=== PATIENT | male | born 1945 | race Caucasian/White ===

== ENCOUNTER 2020-03-28 16:24 | Emergency (ER) | payer MEDICARE ==
[~2020-03-28] VITALS: Ht 175.3 cm; Wt 79.4 kg
[2020-03-28] MEDS ORDERED: BLOOD PRESSURE MED (16:43)
[2020-03-28] MEDS ORDERED: PROSCAR 5MG TABL5 M1 PO (16:44)
[2020-03-28 16:52] LABS: ABSOLUTE BASOPHILS 0.1 thou/uL (0.0-0.2); ABSOLUTE EOSINOPHILS 0.5 thou/uL (0.0-0.7); ABSOLUTE LYMPHOCYTES 1.3 thou/uL (0.8-5.3); ABSOLUTE MONOCYTES 0.9 thou/uL (0.0-1.2); ABSOLUTE NEUTROPHILS 3.7 thou/uL (1.6-8.1); BASOPHILS 1.4 %; EOSINOPHILS 7.5 %; HEMATOCRIT 43.7 % (42.0-52.0); HEMOGLOBIN 14.7 gm/dL (14.0-18.0); LYMPHOCYTES 20.5 %; MCH 31.3 pg (26.0-34.0); MCHC 33.7 g/dL (28.0-37.0); MCV 93.1 fL (80.0-100.0); MONOCYTES 13.2 %; MPV 8.4 fl. (7.2-11.1); NUCLEATED RBCS 0 /100WBC; PLATELET COUNT* 179 thou/uL (150-400); POLYS 57.4 %; RBC 4.69 mil/uL (4.50-6.00); RDW-CV 13.5 % (10.5-14.5); WBC 6.5 thou/uL (4.0-11.0)
[2020-03-28 16:56] LABS: CALCIUM 9.9 mg/dL (8.5-10.1); CREATININE 1.1 mg/dL (0.6-1.3); POTASSIUM 3.8 mmol/L (3.5-5.1)
[2020-03-28 17:06] LABS: ALBUMIN 3.7 g/dL (3.4-5.0); TOTAL BILIRUBIN 0.5 mg/dL (<0.1-1.0); TOTAL PROTEIN 7.9 g/dL (6.4-8.2)
[2020-03-28] MEDS ORDERED: AVAPRO300 MG PO (17:53)
[2020-03-28 18:14] VITALS: BP 207/110
--- NOTE | 2020-03-29 12:57 | EKG ---
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: : 1945 Requested By: Nadja Veras Order Number: [id number] MD: Bipin Duong Measurements Intervals [place] Rate: 75 P: 25 TN: 156 QRS: -59 QRSD: 128 T: 72 QT: 397 QTc: 444 Interpretive Statements Sinus rhythm IVCD, LAD and secondary repol abnrm No previous ECG available for comparison Electronically Signed On 03-29-2020 12:57:04 [employer] by Bipin Duong [email or web address] <ELECTRONICALLY SIGNED> By: Bipin Duong MD, [facility] 03/29/20 1257 1634 1634 Bipin Duong MD, [facility] /EPI
== END 2020-03-28 18:16 | disposition home or self-care (01) ==
LOC: M.ERS 16:24
PROVIDERS: Physician Assistant
DX: I10 Essential (primary) hypertension (principal); Z79.899 Other long term (current) drug therapy